=== PATIENT | male | born 1980 | race Caucasian/White ===

== ENCOUNTER 2018-09-14 19:32 | Emergency (ER) | payer BC ==
[~2018-09-14] VITALS: Ht 177.8 cm; Wt 99.8 kg
[2018-09-14] MEDS ORDERED: KEFLEX500 M1 PO (20:36)
[2018-09-14 20:48] VITALS: BP 149/99
== END 2018-09-14 20:48 | disposition home or self-care (01) ==
LOC: ER 19:32
DX: S61.211A Laceration without foreign body of left index finger without damage to nail, initial encounter (principal); W26.8XXA Contact with other sharp object(s), not elsewhere classified, initial encounter; Y93.89 Activity, other specified; Y92.89 Other specified places as the place of occurrence of the external cause; Y99.8 Other external cause status; Z88.8 Allergy status to other drugs, medicaments and biological substances